=== PATIENT | male | born 1975 | race African-American/Black ===

== ENCOUNTER 2016-07-08 12:24 | Emergency (ER) | payer BC, OTHER ==
--- NOTE | ~2016-07-08 | CR63 ---
[facility] A Service of [facility] & [facility] RADIOLOGY TEXT RESULTS PATIENT: JIM MAKI LOCATION: CFT[facility] : 77 UNIT #: [id number] AGE: [address]: Janelle Mitchell SEX: M ORDER DR: [id number] [place], [place] [address] [id number] E MR#: [id number] Acc #: [id number] NAME: JIM MAKI : 1975 SEX: M STUDY DATE/TIME: 07/08/2016 13:27 UNIT: [facility] ROOM: STUDY DESCRIPTION: CR Chest 2 View Attending Physician: Janelle Mitchell Pa-C Ordering Physician: Ed Doctor [id number] [facility] Primary Care Physician: Verena Jacobs MEDICAL IMAGING REPORT This report is preliminary unless electronic signature is present EXAM Chest 2 views INDICATION Fever today. PROCEDURE Frontal and lateral views of the chest. COMPARISON 07/15/2005. FINDINGS Heart size normal. No dense consolidation. No pleural fluid. No pneumothorax. IMPRESSION No active process. Dictated by... Sonny Allen M.D. THIS IS AN ELECTRONICALLY VERIFIED REPORT Sonny Allen M.D. at 07/12/2016 9:54 AM JOSS/lukas TD: 07/08/2016 14:17 JOB #: [id number] MEDICAL IMAGING REPORT Page 1 of 1 COPY
== END 2016-07-08 14:15 | disposition home or self-care (01) ==
LOC: CFTX 12:24
DX: R50.9 Fever, unspecified (principal); I10 Essential (primary) hypertension
CPT/HCPCS: 36415; 71020; 87040; 99283; J0330